=== PATIENT | female | born 1960 | race Caucasian/White ===

== ENCOUNTER 2020-03-29 09:28 | Outpatient (CLI) | payer MEDICAID | END 2020-03-29 09:29 | disposition home or self-care (01) | LOC: COV 09:28 | PROVIDERS: ATTEND Family Medicine | DX: R05 Cough (principal); R53.83 Other fatigue; J02.9 Acute pharyngitis, unspecified; R09.81 Nasal congestion; Z20.828 Contact with and (suspected) exposure to other viral communicable diseases ==

== ENCOUNTER 2021-05-10 08:00 | Outpatient (CLI) | payer MEDICAID ==
--- NOTE | 2021-05-10 15:57 | XRAY Report ---
PROCEDURE: Lumbar Spine 2 View INDICATIONS: CHRONIC LOW BACK PAIN TECHNIQUE: 3 views of the lumbar spine were acquired. COMPARISON: None. FINDINGS: Bones: 5 [id number] vertebrae are present. There is normal bony alignment. No vertebral body compression fractures. No suspicious bony lesions. Multilevel disc space narrowing and endplate ost eophyte formation. Facet hypertrophy throughout the mid and lower lumbar spine. Soft tissues: Overlying bowel gas pattern is normal. No suspicious soft tissue calcifications. IMPRESSION: Multilevel degenerative disc and facet disease. No acute fracture. No osseous lesion. If symptoms and/or clinical suspicion for pathology continue, further assessment with repeat plain film s, or advanced imaging (e.g., CT, MRI, or bone scan) is recommended for further assessment. Reviewed by: Miguel A Ramirez MD on 05/10/2021 3:55 PM PST Approved by: Miguel A Ramirez MD on 05/10/2021 3:55 PM PST Station ID: [id number]
--- NOTE | 2021-05-10 17:20 | XRAY Report ---
PROCEDURE: Hip w/Pelvis 2-3V RT INDICATIONS: PAIN IN RIGHT HIP TECHNIQUE: AP pelvis with lateral view(s) of the right hip(s). COMPARISON: None. FINDINGS: Bones: No fractures or dislocations. Pelvic ring appears intact. No suspicious bony lesions. Mild bilateral hip osteoarthritis. Soft tissues: The visualized bowel gas pattern is normal. No suspicious soft tissue calcifications. IMPRESSION: Mild bilateral hip osteoarthritis. Reviewed by: Lorena Wilson MD, PhD on 05/10/2021 5:19 PM PST Approved by: Lorena Wilson MD, PhD on 05/10/2021 5:19 PM PST Station ID: [id number]
== END 2021-05-10 23:59 | disposition home or self-care (01) ==
LOC: DI.S 08:00
PROVIDERS: ATTEND Family Medicine
DX: M16.0 Bilateral primary osteoarthritis of hip (principal); M47.816 Spondylosis without myelopathy or radiculopathy, lumbar region; M51.36 Other intervertebral disc degeneration, lumbar region

== ENCOUNTER 2021-10-20 17:08 | Outpatient (CLI) | payer MEDICAID ==
--- NOTE | 2021-10-21 16:04 | XRAY Report ---
PROCEDURE: Lumbar Spine Complete INDICATIONS: ACUTE MIDLINE LOW BACK PAIN WITHOUT SCIATICA TECHNIQUE: 4 views of the lumbar spine were acquired. COMPARISON: X-ray lumbar spine 05/10/2021 FINDINGS: Bones: 5 nonrib-bearing vertebrae are present. There is normal bony alignment. Multilevel degenera tive disc space narrowing is present most severe at L5-S1. In addition, moderate to severe foraminal narrowing is present L4-5, L5-S1. No vertebral body compression fractures. No suspicious bony lesion s. Soft tissues: Overlying bowel gas pattern is normal. No suspicious soft tissue calcifications. Oblique images: No pars defects. IMPRESSION: Degenerative changes without appreciable interval change most notable at L5-S1. Reviewed by: Jane Parkinson MD on 10/21/2021 4:03 PM PDT Approved by: Jane Parkinson MD on 10/21/2021 4:03 PM PDT Station ID: [id number]
== END 2021-10-20 17:09 | disposition home or self-care (01) ==
LOC: DI.S 17:08
PROVIDERS: ATTEND Internal Medicine
DX: M47.816 Spondylosis without myelopathy or radiculopathy, lumbar region (principal); M48.061 Spinal stenosis, lumbar region without neurogenic claudication; M47.817 Spondylosis without myelopathy or radiculopathy, lumbosacral region; M48.07 Spinal stenosis, lumbosacral region

== ENCOUNTER 2022-09-11 08:18 | Outpatient (CLI) | payer MEDICAID ==
--- NOTE | 2022-09-12 09:18 | Mammography Report ---
BILATERAL DIGITAL SCREENING MAMMOGRAM 3D/2D: 09/11/2022 CLINICAL: Routine screening. Comparison is made to exams dated: 05/03/2015 mammogram - [facility], 10/29/2012 ma mmogram, and 08/03/2010 mammogram - [facility]. Both breasts are almost entirely fatty (category a/<25% glandular tissue). No significant masses, calcifications, or other findings are seen in either breast. There has been no significant interval change. IMPRESSION: NEGATIVE There is no mammographic evidence of malignancy. A 1 year screening mammogram is recommended. Based on the Tyrer Cuzick model (a risk assessment model) the patients lifetime risk is 6.9% and her 10 year risk is 3.1%. According to the ACR, ACS, and NCCN guidelines, an annual breast MRI exam rey g with mammogram is recommended if the patients lifetime risk is 20% or greater. This exam was interpreted at Station ID: [id number]. NOTE: For mammograms, a report in lay terms will be sent to the patient. Approximately 15% of breast malignancies will not be visualized mammographically. In the management of a palpable breast mass, a negative mammogram must not discourage biopsy of a clinically suspicious lesion. Electronically Signed By: Ash eckert/matty:09/11/2022 17:13:43 letter sent: No_Letter ACR BI-RADS Category 1: Negative 3341F PARENCHYMAL PATTERN: (F) - The breast(s) demonstrate(s) diffuse fatty replacement. BI-RADS CATEGORY: (1) - 1 Mammogram [id number] 1 year screening LATERALITY: (B)
== END 2022-09-11 08:19 | disposition home or self-care (01) ==
LOC: DI 08:18
PROVIDERS: ATTEND Family Medicine
DX: Z12.31 Encounter for screening mammogram for malignant neoplasm of breast (principal)

== ENCOUNTER 2022-10-26 07:00 | Outpatient (CLI) | payer MEDICAID ==
--- NOTE | 2022-10-26 15:35 | XRAY Report ---
PROCEDURE: Wrist 3 View LT INDICATIONS: LEFT WRIST PAIN TECHNIQUE: 3 views of the wrist were acquired. COMPARISON: None. FINDINGS: Bones: No fractures or dislocations. No suspicious bony lesions. Soft tissues: No suspicious soft tissue calcifications or masses. IMPRESSION: No acute bony abnormality. Reviewed by: Dominik Caruso on 10/26/2022 3:34 PM PDT Approved by: Dominik Caruso on 10/26/2022 3:34 PM PDT Station ID: [id number]
== END 2022-10-26 23:59 | disposition home or self-care (01) ==
LOC: DI.S 07:00
PROVIDERS: ATTEND Emergency Medicine
DX: S63.522A Sprain of radiocarpal joint of left wrist, initial encounter (principal)